=== PATIENT | female | born 1980 | race Caucasian/White ===

== ENCOUNTER 2020-11-25 05:31 | Emergency (ER) | payer BC, SELFPAY ==
[2020-11-25 05:35] VITALS: BP 148/92; PULSE 98; RESP 16; TEMP 36.6; O2SAT 100
--- NOTE | 2020-11-25 06:09 | PC.NURSE ---
Ring cut off by EDP. No complications.
--- NOTE | 2020-11-25 06:09 | ED.GENADULT ---
HPI - General Adult General Chief complaint: Unspecified Stated complaint: ring stuck on finger Time Seen by Provider: 11/25/20 05:34 Source: RN notes reviewed History of Present Illness HPI narrative: Patient presents to emergency room from home for ring stuck on finger. Patient has a ring stuck on her left fourth digit she got engaged last night and woke up this morning with pain and swelling on the finger patient does note that the ring was mildly tight when she placed it on and they are not sure what the ring is made up she denies any trauma or injury or any other symptoms at this time tried applying ice to decrease swelling with minimal change Related Data Allergies Allergy/AdvReac Type Severity Reaction Status Date / Time Penicillins Allergy Unknown Unverified 01/03/17 10:26 Review of Systems Review of Systems: Narrative: Gen.: Denies fevers or chills Musculoskeletal: See HPI Neuro: Denies numbness, tingling, weakness Skin: Denies rash Endo: Denies DM PMFSH Past Medical History Medical History (Updated 11/25/20 @ 06:12 by Aneesh Covarrubias DO) Patient denies significant medical history Social History Social History (Updated 11/25/20 @ 06:10 by Aneesh Covarrubias DO) Smoking status: Current every day smoker Exam Narrative: Exam Narrative: APPEARANCE: No acute distress, nontoxic, resting in bed Eyes: EOMI HEENT: Normocephalic, atraumatic, RESPIRATORY: No respiratory distress MUSCULOSKELETAl: Left fourth digit with a ring stuck at base of finger the remainder of the finger is swollen capillary refill less than 3 seconds remainder digits are normal in appearance NEURO: Awake and alert. Following commands, speech normal, no focal deficits SKIN:: Warm, dry. Normal Color no rash or lesions Course Course Emergency Course: Procedure note: Procedure was performed by myself ring cutter was used to ring and then closure use of holding apart and removed from finger patient tolerated the procedure well Discussed with patient results of workup and diagnosis. Discussed need for follow-up with primary care, proper use of medication, and reasons to return to the emergency department. Patient understands and agrees to current treatment plan Vital Signs Vital signs: Vital Signs Temperature 97.8 F 11/25/20 05:35 Pulse Rate 98 11/25/20 05:35 Respiratory Rate 16 11/25/20 05:35 Blood Pressure 148/92 H 11/25/20 05:35 Pulse Oximetry 100 11/25/20 05:35 Temperature 97.8 F 11/25/20 05:35 Pulse Rate 98 11/25/20 05:35 Respiratory Rate 16 11/25/20 05:35 Blood Pressure 148/92 H 11/25/20 05:35 Pulse Oximetry 100 11/25/20 05:35 Medical Decision Making Vital Signs Vital Signs: Vital Signs Temperature 97.8 F 11/25/20 05:35 Pulse Rate 98 11/25/20 05:35 Respiratory Rate 16 11/25/20 05:35 Blood Pressure 148/92 H 11/25/20 05:35 Pulse Oximetry 100 11/25/20 05:35 Temperature 97.8 F 11/25/20 05:35 Pulse Rate 98 11/25/20 05:35 Respiratory Rate 16 11/25/20 05:35 Blood Pressure 148/92 H 11/25/20 05:35 Pulse Oximetry 100 11/25/20 05:35 Discharge Plan Discharge Clinical Impression: Tight ring on finger Patient Disposition: Home, Self-Care Condition: Stable Instructions: Antibiotic Form Follow-up/Referrals: Javon,ANTON Min [Primary Care Provider] - 1 Week Time of Disposition: 06:12
[2020-11-25 06:18] VITALS: PULSE 88; RESP 18; O2SAT 100
== END 2020-11-25 06:18 | disposition home or self-care (01) ==
PROVIDERS: Emergency Provider Emergency Medicine; PCP Physician Assistant
DX: S60.445A External constriction of left ring finger, initial encounter (principal); F17.200 Nicotine dependence, unspecified, uncomplicated; W49.04XA Ring or other jewelry causing external constriction, initial encounter
CPT/HCPCS: 99282

== ENCOUNTER 2022-07-13 12:14 | Emergency (ER) | payer BC, SELFPAY ==
--- NOTE | ~2022-07-13 | XR_ITS ---
EXAMINATION: XR chest 2V DATE: 07/13/2022 13:25 INDICATION: Cough and wheezing TECHNIQUE: PA and lateral views of the chest are obtained. COMPARISON: None available FINDINGS: The lungs are free of acute opacities. No pleural effusion or pneumothorax. The cardiomedia stinal silhouette is normal. There is mild thoracic spondylosis. IMPRESSION: 1. No acute cardiopulmonary abnormality. Reviewed, dictated and finalized at location A. [employer]
[2022-07-13 12:24] VITALS: BP 154/89; PULSE 102; RESP 20; TEMP 37.2; O2SAT 98
--- NOTE | 2022-07-13 13:02 | ED.GENADULT ---
HPI - General Adult General Chief complaint: Upper Respiratory Infection Stated complaint: cough,fever,lethargic Source: patient Mode of arrival: ambulatory Limitations: no limitations History of Present Illness HPI narrative: Patient presents for evaluation of sick symptoms for last 5 days. Symptoms include fever, cough, sinus congestion drainage, and sore throat. She did have nausea, vomiting, diarrhea at the time of symptom onset but all of those have resolved. No recent sick contacts to her knowledge. She had COVID in the past. She has not received COVID vaccination. She did not receive a flu shot. She is not using any medications to assist with her symptoms. She smokes about a quarter pack per day. No additional complaints or concerns. Related Data Home Medications Medication Instructions Recorded Confirmed No Home Medications 07/13/22 07/13/22 Allergies Allergy/AdvReac Type Severity Reaction Status Date / Time Penicillins Allergy Unknown Unknown Unverified 07/13/22 12:29 Sulfa (Sulfonamide Allergy Rash Verified 07/13/22 12:29 Antibiotics) Review of Systems Review of Systems: CONSTITUTIONAL: Reports fever. Denies chills or sweats. EYES: Denies visual changes, redness, or discharge. ENT: Reports sinus congestion, drainage, and sore throat CARDIOVASCULAR: Denies chest pain, palpitations, or edema. RESPIRATORY: Reports cough. Reports chronic mild shortness of breath, not worse as of late.. GASTROINTESTINAL: Reports recent nausea, vomiting, diarrhea, none currently GENITOURINARY: Denies dysuria or hematuria. SKIN: Denies rash or itching. MUSCULOSKELETAL: Denies back pain, joint pain, or myalgia. NEUROLOGIC: Denies headache, numbness, dizziness, or weakness. PSYCHIATRIC: Denies anxiety or depression. [facility] Past Medical History Medical History (Updated 07/13/22 @ 13:44 by ROBERT Bragg, EDWARD) Patient denies significant medical history Surgical History Surgical History No pertinent past surgical history Family History Family History Mother Family history non-contributory Social History Social History Smoking packs per day: 0.25 Smoking cigarettes per day: 5.0 Smoking status: Current every day smoker Alcohol intake: current Alcohol use details: social Living arrangements: with family Gender identity (if verbalized by the patient): Female Sexual Orientation (if Verbalized by the Patient): Straight or Heterosexual Spiritual care concerns: No Exam Narrative: GENERAL: Well-appearing, well-nourished, and in no acute distress. HEAD: Normocephalic, atraumatic. EYES: PERRLA and EOMI. ENT: Nares clear, no rhinorrhea or epistaxis. Mucous membranes moist. Posterior pharyngeal erythema without exudate. Uvula is midline. Bilateral TMs pearly justin nonbulging NECK: Supple. No adenopathy or masses. No carotid bruits or JVD CHEST: Mild wheezing in bilateral lung patel posteriorly. HEART: Regular rate and rhythm. No murmur heard. Normal peripheral pulses. ABDOMEN: Soft, nontender, nondistended, normal active bowel sounds. EXTREMITIES: Normal range of motion. No edema. SKIN: Warm, dry, no rash. NEURO: No focal deficits. Alert and oriented x3. PSYCH: Normal mood and affect. Course Course Emergency Course: This is a 41-year-old female who presented for evaluation of sick symptoms. COVID, influenza, chest x-ray were all negative. Exam is consistent with acute viral syndrome. [id number] agents for symptom management. Increase hydration. Do not smoke. Follow-up with primary provider this coming week. Go to the ER for difficulty breathing or swallowing. Patient in agreement plan care. Level of Care: Express Care Visit Vital Signs Vital signs: Vital Signs Temperature 37.2 C
== END 2022-07-13 13:53 | disposition home or self-care (01) ==
PROVIDERS: Emergency Provider Nurse Practitioner; PCP Physician Assistant
DX: J06.9 Acute upper respiratory infection, unspecified (principal); Z20.822 Contact with and (suspected) exposure to COVID-19; F17.210 Nicotine dependence, cigarettes, uncomplicated; Z86.16 Personal history of COVID-19
CPT/HCPCS: 71046; 87081; 87426; 87804; 99213; C9803; G0463

== ENCOUNTER 2023-11-10 16:16 | Outpatient (CLI) | payer BC, SELFPAY ==
[2023-11-10 16:34] LABS: Eosinophils Absolute Auto 0.28 K/mm3 (0.02-0.50); Eosinophils Percent Auto 2.9 % (1.0-6.0); Hematocrit 40.5 % (35.0-49.0); Hemoglobin 13.8 g/dL (12.0-15.0); Immature Granulocyte Absolute 0.03 K/mm3 (0.00-0.00); Immature Granulocyte Percent A 0.3 % (0.0-0.0); Lymphocytes Absolute Auto 2.61 K/mm3 (1.10-4.50); Lymphocytes Percent Auto 26.9 % (18.0-42.0); Mean Corpuscular HGB Conc 34.1 g/dL (32-36); Mean Corpuscular Hemoglobin 32.9 pg (27.0-31.0); Mean Corpuscular Volume 96.4 fL (78.0-102.0); Mean Platelet Volume 9.6 fl (9.2-11.8); Monocytes Absolute Auto 0.64 K/mm3 (0.10-0.90); Monocytes Percent Auto 6.6 % (2.0-11.0); Neutrophils Absolute Auto 6.05 K/mm3 (1.70-7.20); Neutrophils Percent Auto 62.3 % (50.0-70.0); Platelet Count Result 267 K/mm3 (150-420); Red Cell Distribution Width 12.6 % (11.6-14.4); White Blood Count 9.7 K/mm3 (4.8-10.8)
[2023-11-10 17:12] LABS: Alanine Aminotransferase 22 U/L (14-59); Albumin Level 3.7 g/dL (3.4-5.0); Alkaline Phosphatase 59 U/L (46-116); Anion Gap 16 mmol/L (4-12); Aspartate Amino Transferase 17 U/L (15-37); Bilirubin,Total 0.5 mg/dL (0.00-1.00); Blood Urea Nitrogen 9 mg/dL (7-18); Calcium 8.9 mg/dL (8.5-10.1); Carbon Dioxide 19 mmol/L (21-32); Chloride 105 mmol/L (98-108); Cholesterol 208 mg/dL (0-200); Estimated Glomerular Filt Rate > 60; Glucose 74 mg/dL (70-99); HDL Direct 62 mg/dL (40-60); LDL Cholesterol Calculated 134 mg/dL (<130); Osmolality Calculated 287 mOsm/kg (285-295); Potassium 4.1 mmol/L (3.5-5.1); SPREG INTERNAL CONTROL Positive; Serum Qual hCG Negative; Sodium 140 mmol/L (136-145); Total Protein 6.7 g/dL (6.4-8.2); Triglycerides 62 mg/dL (0-150)
== END 2023-11-10 16:17 | disposition home or self-care (01) ==
PROVIDERS: PCP Physician Assistant; Visit Provider Specialist
DX: L70.0 Acne vulgaris (principal); Z79.899 Other long term (current) drug therapy
CPT/HCPCS: 36415; 80053; 80061; 84703; 85025

== ENCOUNTER 2023-12-02 14:43 | Outpatient (CLI) | payer BC, SELFPAY ==
--- NOTE | ~2023-12-02 | MM_ITS ---
EXAMINATION: MM screening sneha BI w kannan HISTORY: Screening mammogram TECHNIQUE: Craniocaudal and mediolateral oblique 3-D tomosynthesis images were obtained and synthetic 2-D images were generated. CAD analysis was submitted and interpreted. COMPARISON: Baseline examination. No prior mammogram is available for comparison at this institution. BREAST PARENCHYMAL COMPOSITION: There are scattered areas of fibroglandular density. FINDINGS: Scattered bilateral benign calcifications. There is no evidence of suspicious mass, calcifi cation, or architectural distortion to suggest malignancy in either breast. IMPRESSION: 1. No mammographic evidence of malignancy. 2. Recommend routine screening mammography in one year. BI-RADS Category 2: Benign finding(s). Reviewed, dictated and finalized at location B.
== END 2023-12-02 14:44 | disposition home or self-care (01) ==
LOC: ANHIMG 14:45
PROVIDERS: PCP Physician Assistant; Visit Provider Obstetrics & Gynecology
DX: Z12.31 Encounter for screening mammogram for malignant neoplasm of breast (principal)
CPT/HCPCS: 77063; 77067

== ENCOUNTER 2024-01-18 07:04 | Outpatient (CLI) | payer BC, SELFPAY ==
[2024-01-18 07:33] LABS: Hematocrit 41.9 % (35.0-49.0); Hemoglobin 14.3 g/dL (12.0-15.0); Mean Corpuscular HGB Conc 34.1 g/dL (32-36); Mean Corpuscular Hemoglobin 32.4 pg (27.0-31.0); Platelet Count Result 268 K/mm3 (150-420); Red Blood Count 4.41 M/mm3 (4.20-5.40); Red Cell Distribution Width 13.1 % (11.6-14.4)
[2024-01-18 08:03] LABS: Alanine Aminotransferase 18 U/L (14-59); Albumin Level 3.4 g/dL (3.4-5.0); Alkaline Phosphatase 52 U/L (46-116); Anion Gap 11 mmol/L (4-12); Aspartate Amino Transferase 17 U/L (15-37); Bilirubin,Total 0.9 mg/dL (0.00-1.00); Blood Urea Nitrogen 4 mg/dL (7-18); Calcium 8.9 mg/dL (8.5-10.1); Carbon Dioxide 24 mmol/L (21-32); Chloride 102 mmol/L (98-108); Cholesterol 219 mg/dL (0-200); Estimated Glomerular Filt Rate > 60; Glucose 96 mg/dL (70-99); HDL Direct 55 mg/dL (40-60); LDL Cholesterol Calculated 153 mg/dL (<130); Osmolality Calculated 280 mOsm/kg (285-295); Potassium 4.1 mmol/L (3.5-5.1); Sodium 137 mmol/L (136-145); Total Protein 6.5 g/dL (6.4-8.2); Triglycerides 54 mg/dL (0-150)
[2024-01-18 08:15] LABS: Band Neutrophils Percent 0 % (0-6); Eosinophils Absolute Manual 0.14 K/mm3 (0.02-0.50); Eosinophils Percent Manual 2 % (1-6); Lymphocytes Absolute Manual 1.96 K/mm3 (1.1-4.5); Lymphocytes Percent Manual 28 % (18-44); Monocytes Absolute Manual 0.42 K/mm3 (0.1-0.90); Monocytes Percent Manual 6 % (3-9); Neutrophils Absolute Manual 4.48 K/mm3 (1.7-7.2); Neutrophils Percent Manual 64 % (46-73); Platelet Estimate Adequate (Adequate); Total Cells Counted 100
== END 2024-01-18 07:05 | disposition home or self-care (01) ==
LOC: CHSLAB 07:06
PROVIDERS: PCP Physician Assistant; Visit Provider Specialist
DX: L70.0 Acne vulgaris (principal); Z79.899 Other long term (current) drug therapy
CPT/HCPCS: 36415; 80053; 80061; 85025

== ENCOUNTER 2025-01-16 14:05 | Outpatient (CLI) | payer BC, SELFPAY ==
--- NOTE | ~2025-01-16 | MM_ITS ---
EXAMINATION: MM screening sneha BI w kannan HISTORY: Screening mammogram TECHNIQUE: Craniocaudal and mediolateral oblique 3-D tomosynthesis images were obtained and synthetic 2-D images were generated. CAD analysis was submitted and interpreted. COMPARISON: 12/02/2023 BREAST PARENCHYMAL COMPOSITION:Dense: The breasts are heterogeneously dense, which may obscure small masses. FINDINGS: There is asymmetry in the posterior, inner left breast in cc view. Bilateral benign calcifi cation is present. No suspicious parenchymal abnormality of the right breast. IMPRESSION: Posterior, inner left breast asymmetry. Spot compression views, and possibly ultrasound, recommended for further evaluation. BI-RADS Category 0: Incomplete: Needs additional imaging evaluation. Reviewed, dictated and finalized at location . IMPRESSION: Posterior, inner left breast asymmetry. Spot compression views, and possibly ul trasound, recommended for further evaluation. BI-RADS Category 0: Incomplete: Needs additional imaging evaluation.
== END 2025-01-16 14:06 | disposition home or self-care (01) ==
PROVIDERS: PCP Physician Assistant; Visit Provider Obstetrics & Gynecology
DX: Z12.31 Encounter for screening mammogram for malignant neoplasm of breast (principal); R92.8 Other abnormal and inconclusive findings on diagnostic imaging of breast
CPT/HCPCS: 77063; 77067

== ENCOUNTER 2025-02-09 08:18 | Outpatient (CLI) | payer BC, SELFPAY ==
--- NOTE | ~2025-02-09 | MMUS_ITS ---
EXAMINATION: MM diagnostic sneha LT w kannan, US breast LT limited HISTORY: Follow-up left breast asymmetry TECHNIQUE: Additional 3-D tomosynthesis images of the left breast were performed and synthetic 2-D im ages were generated. CAD analysis was submitted and interpreted. High resolution Limited left breast ultrasound was performed. COMPARISON: Comparison to multiple prior studies sequentially, with oldest reviewed study dated 02/2024. BREAST PARENCHYMAL COMPOSITION: Not dense: There are scattered areas of fibroglandular density. FINDINGS: MAMMOGRAPHIC FINDINGS: There are no suspicious masses, calcifications or architectural distortion in the left breast to sugg est malignancy. ULTRASOUND: Limited left breast ultrasound: Near the nipple there is a 6 mm cyst. No suspicious masses to suggest malignancy. IMPRESSION: 1. No evidence for malignancy in the left breast. 2. Routine yearly screening mammogram and regular clinical breast examination are recommended. BI-RADS Category 2: Benign finding(s). Reviewed, dictated and finalized at location B. IMPRESSION: 1. No evidence for malignancy in the left breast. 2. Routine yearly screening mammogram and regular clinical breast examination a re recommended. BI-RADS Category 2: Benign finding(s).
== END 2025-02-09 08:19 | disposition home or self-care (01) ==
LOC: MICIMG 08:19
PROVIDERS: PCP Physician Assistant; Visit Provider Obstetrics & Gynecology
DX: R92.8 Other abnormal and inconclusive findings on diagnostic imaging of breast (principal)
CPT/HCPCS: 76642; 77061; 77065; G0279